=== PATIENT | female | born 1940 | race Caucasian/White ===

== ENCOUNTER 2018-12-25 08:35 | Day surgery (SDC) | payer MEDICARE, OTHER, SELFPAY ==
[2018-12-25] VITALS (7 sets, daily range): BP systolic 89–135; BP diastolic 39–60; PULSE 54–66; RESP 16; TEMP 36.2–36.5; O2SAT 95–97; BMI 34.0
--- NOTE | 2018-12-25 08:49 | EKG12_ITS ---
Test Reason : PRE-OP Blood Pressure : / mmHG Vent. Rate : 072 BPM Atrial Rate : 072 BPM P-R Int : 160 ms QRS Dur : 096 ms QT Int : 398 ms P-R-T Axes : -03 -17 -07 degrees QTc Int : 435 ms Normal sinus rhythm Normal ECG No previous ECGs available Confirmed by CARMEN HO, THEO ([id number]), [employer] LIZZETTE LOPES ([id number]) on 12/31/2018 1:13:40 PM Referred By: Noemy Cancino Confirmed By:THEO MORALES MD
--- NOTE | 2018-12-25 10:25 | EMB_PTH ---
PATIENT: GURJIT NULL LOC: [facility] [place] U[place][id number] AGE/SX: 78/F ROOM: RE12/25/[address]: Dr. Noemy Cancino MD : [id number] BED: DIS: 12/25/2018 SPEC #: [id number] RECD: 12/25/18 12:43 STATUS: ANGELICA RECandelario #: [id number] GUILLERMO: 12/25/18 10:[address]: Noemy Cancino DEPT: SURGICAL PATHOLOGY RECD BY: Oswaldo Escalante ENTERED: 12/25/18 13:16 SP TYPE: ENDOM BX/C ALEIDA DR: Dr. 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 SJ:zulay 12/28/18 COMMENT Case has been reviewed in consultation with Dr. Gruber who concurs with the above diagnosis. IDC:AM MICROSCOPIC DESCRIPTION Slides are reviewed. GROSS DESCRIPTION Received in fixative is one container labeled with the patient's name and designated endometrial curettings. The specimen consists of multiple fragments of hemorrhagic mucoid tissue that in aggregate measure 3 x 2.5 x 0.3 cm. The specimen is totally submitted in one cassette. / SJ:zulay 12/25/18 TC:5 CPT: 12330
[2018-12-25] MEDS: Ciprofloxacin 400 MG/200 ML BAG 200 MG IV (10:35)
--- NOTE | 2018-12-25 10:35 | DCINST_ITS ---
Discharge Activity: Return to Normal Activity May resume sexual activity in: No Restrictions Call your doctor if your incision/area has: Continuous Slow Oozing, Sudden Increased Bleeding, Foul Smelling Discharge Call your doctor if you observe: Fever of 101 or Higher, Coldness, Increased Pain, Numbness or Tingling, Inability to urinate, Inability to have a bowel movement, Using more than one pad per hour, Shortness of breath, Dizziness, Fainting spells Allergies/Adverse Reactions: Allergies No Known Allergies Allergy (Verified 12/25/18 09:25) Medications to take at Discharge Carbidopa/Levodopa [Carbidopa-Levodopa 25-100 Tab] 1.5 each PO TID 12/23/18 Levothyroxine [Synthroid] 50 mcg PO DAILY 12/23/18 Multivitamin [Multiple Vitamins] 1 each PO DAILY 12/23/18 Osteo Matrix 2 tab PO DAILY 12/23/18 Oxybutynin Chloride [Oxybutynin Chloride ER] 10 mg PO DAILY 12/23/18 Vitamin E 400 units PO DAILY 12/23/18 Orders to be completed after discharge: Thyroid Stim Hormone (TSH) Time Frame: 12/23/18, Location: Laboratory Primary Care Physician: Palmer Sloan MD [Primary Care Provider] - Test Results: Test results from this visit will be discussed in further detail at your follow- up appointment, if applicable. Please Follow Up With: Noemy Cancino MD When: to be determined Proposed Discharge Date: 12/25/18
--- NOTE | 2018-12-25 10:35 | PCM.OPRPT ---
Problem List (1) Endometrial thickening on ultrasound Status: Acute Report of Operation Date of Procedure: 12/25/18 Pre-Operative Diagnosis: Thickened endometrial stripe Post-Operative Diagnosis: same Surgery/Procedure Performed:: D&C Hysteroscopy Description of Surgical Findings:: white thickened appearing endometrium. no polyps or tumors noted. Uterus sounded to 9 cm Type of Anesthesia:: MAC Specimen's removed: endometrial curettings Estimated Blood Loss (mL): minimal Description of Procedure: The patient was taken to the operating room where MAC anesthesia was initiated. The patient was placed in dorsal lithotomy position and prepped and draped in sterile fashion. A surgical timeout occurred. Urine was drained with a red rubber catheter from the patient's bladder. The cervix was grasped with an Allis clamp. The uterus was sounded to 9 cm. A curettage was performed yielding minimal tissue. A hysteroscopy was performed and the endometrium appeared white and thickened. Further curettage was performed yielding minimal tissue again. Anesthesia was discontinued. All needle, instrument, and sponge counts were correct x 2. The patient was taken to recovery room in stable condition. - Complications None - Admit VTE Documentation VTE Present on Admission: Yes VTE Mechan Device Prophylaxis: SCD's VTE Pharm Prophylaxis ordered?: No Reason prophylaxis not ordered:: Procedure Not Indicated, Treatment Not Indicated
== END 2018-12-25 12:10 | disposition home or self-care (01) ==
LOC: SDC 08:38 → AC 08:38
PROVIDERS: Family Provider Family Medicine; PCP Family Medicine; Referring Provider Obstetrics & Gynecology; Visit Provider Obstetrics & Gynecology
PROC: 0UDB8ZZ Extraction of Endometrium, Via Natural or Artificial Opening Endoscopic (ICD-10-PCS; CPT 58558; principal; 2018-12-25 10:15)
DX: N85.01 Benign endometrial hyperplasia (principal); N39.8 Other specified disorders of urinary system; N32.81 Overactive bladder; N39.3 Stress incontinence (female) (male); G20 Parkinson's disease
CPT/HCPCS: 00952; 58558; 88305; 93005; J7120; J0744